=== PATIENT | male | born 1990 | race Caucasian/White ===

== ENCOUNTER → 2019-10-26 | Outpatient (CLI) | payer MEDICAID | LOC: COL.RAD 08:15 | DX: D49.2 Neoplasm of unspecified behavior of bone, soft tissue, and skin (principal) | CPT/HCPCS: A9585 ==

== ENCOUNTER 2021-10-30 15:01 | Emergency (ER) | payer MEDICAID ==
[~2021-10-30] VITALS: Ht 170.2 cm; Wt 87.7 kg
[2021-10-30 15:32] VITALS: TEMP 97
[2021-10-30 16:49] VITALS: BP 114/63; PULSE 95
== END 2021-10-30 16:52 | disposition home or self-care (01) ==
LOC: COL.ER 15:01
DX: B34.9 Viral infection, unspecified (principal); Z20.822 Contact with and (suspected) exposure to COVID-19

== ENCOUNTER 2021-11-23 12:15 | Emergency (ER) | payer BC, MEDICAID ==
[~2021-11-23] VITALS: Ht 170.2 cm; Wt 87.3 kg
[2021-11-23 13:27] VITALS: TEMP 100
[2021-11-23 15:51] VITALS: BP 131/75; PULSE 79
== END 2021-11-23 15:53 | disposition home or self-care (01) ==
LOC: COL.ER 12:15
DX: U07.1 COVID-19 (principal)

== ENCOUNTER 2021-12-25 09:43 | Emergency (ER) | payer MEDICAID ==
[~2021-12-25] VITALS: Ht 170.2 cm; Wt 85.5 kg
[2021-12-25 09:54] VITALS: TEMP 98
[2021-12-25 10:53] LABS: BASO % 0.6 % (0.0-2.0); EOS # 0.1 K/mm3 (0.0-0.7); EOS % 2.1 % (0.0-4.0); GRAN # 2.4 K/mm3 (1.4-6.5); GRAN % 37.2 % (42.2-75.2); HEMATOCRIT 41.8 % (42.0-52.0); HEMOGLOBIN 14.6 g/dl (13.5-18.0); LYMPH # 3.5 K/mm3 (1.2-3.4); LYMPH % 53.6 % (20.0-51.0); MEAN CELL VOLUME 89 fl (80.0-100.0); MEAN CORPUSCULAR HEMOGLOBIN 31 pg (27-31); MEAN CORPUSCULAR HGB CONC 35 g/dl (33.0-37.0); MEAN PLATELET VOLUME 10.6 fl (7.4-10.4); MONO # 0.4 K/mm3 (0.1-0.6); MONO % 6.2 % (1.7-9.3); PLATELET COUNT 221 K/mm3 (130-400); RED BLOOD COUNT 4.68 M/mm3 (4.20-5.60); REDCELL DISTRIBUTION WIDTH-CV 12.7 % (11.5-14.5)
[2021-12-25 11:03] LABS: ALANINE AMINOTRANSFERASE 13 U/L (0-55); ALBUMIN 4.1 gm/dL (3.5-5.0); ALKALINE PHOSPHATASE 67 U/L (40-150); ANION GAP 8 mmol/L (7-16); AST,SGOT 16 U/L (5-34); BILIRUBIN,TOTAL 0.4 mg/dL (0.2-1.2); BLOOD UREA NITROGEN 13 mg/dL (9-21); CALCIUM 8.7 mg/dL (8.4-10.2); CARBON DIOXIDE 25 mmol/L (22-29); CHLORIDE 107 mmol/L (98-107); CREATININE, serum 1.13 mg/dL (0.72-1.25); GLUCOSE 103 mg/dL (70-99); POTASSIUM 4.1 mmol/L (3.5-4.5); SODIUM 140 mmol/L (136-145)
[2021-12-25 11:10] LABS: TROPONIN-I < 0.010 ng/mL (0.00-0.033)
[2021-12-25 12:30] VITALS: BP 129/80; PULSE 67
== END 2021-12-25 12:15 | disposition home or self-care (01) ==
LOC: COL.ER 09:43
PROVIDERS: Nurse Practitioner
DX: R07.89 Other chest pain (principal); Z86.16 Personal history of COVID-19

== ENCOUNTER 2022-02-14 13:16 | Emergency (ER) | payer MEDICAID ==
[~2022-02-14] VITALS: Ht 170.2 cm; Wt 69.1 kg
[2022-02-14 13:31] VITALS: TEMP 98.2
[2022-02-14 14:50] VITALS: BP 116/83; PULSE 59
== END 2022-02-14 14:50 | disposition home or self-care (01) ==
LOC: COL.ER 13:16
DX: B34.9 Viral infection, unspecified (principal); Z20.822 Contact with and (suspected) exposure to COVID-19